=== PATIENT | female | born 2005 | race African-American/Black ===

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

== ENCOUNTER → 2025-02-06 | Outpatient (REF) | payer OTHER ==
[~2025-02-06] MED LIST changes: +PRENTAB9 PO
== END ==
LOC: M PLALAB 07:41
PROVIDERS: ATTEND Obstetrics & Gynecology
DX: O36.5990 Maternal care for other known or suspected poor fetal growth, unspecified trimester, not applicable or unspecified (principal); Z3A.00 Weeks of gestation of pregnancy not specified

== ENCOUNTER 2025-02-07 08:44 | Emergency (ER) | payer OTHER | END 2025-02-07 10:18 | disposition admitted as inpatient to this hospital (09) | LOC: M ED 08:44 | DX: Z53.21 Procedure and treatment not carried out due to patient leaving prior to being seen by health care provider (principal) ==

== ENCOUNTER 2025-02-07 08:52 | Outpatient (CLI) | payer OTHER ==
[~2025-02-07] VITALS: Ht 165.1 cm; Wt 89.3 kg
[2025-02-07 09:13] VITALS: BP 116/69
== END 2025-02-07 09:55 | disposition home or self-care (01) ==
LOC: M LDO 08:52
PROVIDERS: ATTEND Specialist
DX: O36.8130 Decreased fetal movements, third trimester, not applicable or unspecified (principal); O36.5930 Maternal care for other known or suspected poor fetal growth, third trimester, not applicable or unspecified; Z3A.30 30 weeks gestation of pregnancy
CPT/HCPCS: 59025; G0463

== ENCOUNTER → 2025-02-13 | Outpatient (CLI) | payer OTHER | LOC: M RAD 14:08 | PROVIDERS: ATTEND Specialist | DX: O36.5990 Maternal care for other known or suspected poor fetal growth, unspecified trimester, not applicable or unspecified (principal); Z3A.33 33 weeks gestation of pregnancy ==

== ENCOUNTER → 2025-03-03 | Outpatient (CLI) | payer OTHER | LOC: M WHC 12:37 | PROVIDERS: ATTEND Nurse Practitioner Family | DX: O36.5930 Maternal care for other known or suspected poor fetal growth, third trimester, not applicable or unspecified (principal); Z3A.33 33 weeks gestation of pregnancy | CPT/HCPCS: 59025; 76815; 76819; 76820; G0463 ==

== ENCOUNTER 2025-03-28 07:57 | Inpatient (IN) | payer OTHER ==
[2025-03-28] VITALS (8 sets, daily range): BP systolic 105–126; BP diastolic 58–78
[~2025-03-28] VITALS: Ht 165.1 cm; Wt 92.4 kg
[2025-03-28 10:11] LABS: PLATELET COUNT, AUTOMATED 234 10^3/uL (150-450)
[2025-03-28 11:38] LABS: HIV 1&2 SCREEN NEGATIVE (NEGATIVE)
[2025-03-28 11:46] LABS: HEPATITIS C VIRUS ABY INDEX 0.03 INDEX (<0.8)
[2025-03-28 11:55] LABS: LDH LACTATE DEHYDROGENASE 179 U/L (120-246)
[2025-03-28 11:56] LABS: ALT/SGPT 17 U/L (7.0-40); AST/SGOT 23 U/L (<34); CREATININE FOR GFR 0.65 MG/DL (0.55-1.30); GLOMERULAR FILTRATION RATE > 90.0 (>60)
[2025-03-28] MEDS: miSOPROStol 50 MCG 1/2 TABLET PO PRN (13:01)
[2025-03-29] VITALS (10 sets, daily range): BP systolic 105–130; BP diastolic 52–86
[2025-03-30] VITALS (29 sets, daily range): BP systolic 105–147; BP diastolic 60–97
[2025-03-30] MEDS: LR 1,000 ML IV SCH (04:46)
[2025-03-30] MEDS: OXYTOCIN DRIP 30 UNITS in IV 1 EA IV SCH (04:47)
[2025-03-30] MEDS ORDERED: EPIDURAL/PCA KEYS XX PRN (10:50)
[2025-03-30] MEDS ORDERED: diphenhydrAMINE 50 MG/ML VIAL IV PRN (10:50)
[2025-03-30] MEDS ORDERED: LR 500 ML IV PRN (10:50)
[2025-03-30] MEDS ORDERED: NALOXONE INJ 0.4MG/1ML VIAL IV PRN (10:50)
[2025-03-30] MEDS ORDERED: FENTANYL 2 MCG/ML ROPIVACAINE 0.2% IN 0.9% NACL 100 ML IVBAG As Ordered ONE (10:56)
[2025-03-30] MEDS: FENTANYL/ROPIVACAINE/NACL BAG 100 ML EPIDURAL SCH (11:35)
[2025-03-30] MEDS: ONDANSETRON 4MG 2ML VIAL IV PRN (20:07)
[2025-03-30] MEDS ORDERED: IBUPROFEN 600 MG TAB PO PRN (20:10)
[2025-03-30] MEDS ORDERED: ANUSOL HC CREAM 30 GM TOP PRN (20:10)
[2025-03-30] MEDS ORDERED: MOM 30 ML SUSPENSION UDC PO PRN (20:10)
[2025-03-30] MEDS ORDERED: DOCUSATE SODIUM 100 MG CAPSULE PO PRN (20:10)
[2025-03-30] MEDS ORDERED: ACETAMINOPHEN 325 MG TAB PO PRN (20:10)
[2025-03-30] MEDS: METHYLERGONOVINE MALEATE 0.2 MG/ML 1 ML VIAL IM PRN (20:39)
[2025-03-30] MEDS: IBUPROFEN 800 MG TAB PO PRN (21:55)
[2025-03-31] MEDS: DIBUCAINE 1% OINTMENT 30 GM TOP PRN (03:35)
[2025-03-31 06:00] VITALS: BP 134/68; O2SAT 98
[2025-03-31] MEDS: RHOGAM 300MCG (1500IU) INJ IM SCH (07:23)
[2025-03-31] MEDS: PRENATAL VITAMINS CHEWABLE TABLET PO SCH (08:06)
[2025-03-31 18:27] VITALS: BP 113/70; O2SAT 99
[2025-04-01 05:51] VITALS: BP 130/79; O2SAT 98
[2025-04-01] MEDS: MEASLES,MUMPS,RUBELLA VACCINE INJ (MMR-II) SC.IMMUN ONE (06:47)
[2025-04-01] MEDS: ACETAMINOPHEN 500 MG TAB PO PRN (08:08)
[2025-04-01 08:16] VITALS: BP 130/79; TEMP 98.2; O2SAT 98
== END 2025-04-01 12:45 | disposition home or self-care (01) | DRG 807 ==
LOC: M LDI 07:57 → M OBS 03-30 22:00
PROVIDERS: ADMIT Obstetrics & Gynecology; ATTEND Obstetrics & Gynecology
PROC: 3E033VJ Introduction of Other Hormone into Peripheral Vein, Percutaneous Approach (ICD-10-PCS; 2025-03-28)
PROC: 3E0P7GC Introduction of Other Therapeutic Substance into Female Reproductive, Via Natural or Artificial Opening (ICD-10-PCS; 2025-03-28)
PROC: 10E0XZZ Delivery of Products of Conception, External Approach (ICD-10-PCS; principal; 2025-03-30)
PROC: 0HQ9XZZ Repair Perineum Skin, External Approach (ICD-10-PCS; 2025-03-30)
DX: O36.5990 Maternal care for other known or suspected poor fetal growth, unspecified trimester, not applicable or unspecified (principal); Z37.0 Single live birth; Z3A.37 37 weeks gestation of pregnancy; O69.82X0 Labor and delivery complicated by other cord entanglement, without compression, not applicable or unspecified; O70.0 First degree perineal laceration during delivery

== ENCOUNTER 2025-08-16 10:36 | Emergency (ER) | payer OTHER ==
[~2025-08-16] VITALS: Ht 165.1 cm; Wt 84.3 kg
[2025-08-16] MEDS ORDERED: ACYC1CAP20 PO (12:26)
[2025-08-16 12:28] VITALS: BP 117/80; TEMP 98.9; O2SAT 99
[2025-08-16 12:31] LABS: Trichomonas vaginalis (AMP) NOT DETECTED (NEGATIVE)
[2025-08-16 12:54] LABS: GC DNA AMPLIFICATION NEGATIVE (NEGATIVE)
== END 2025-08-16 12:30 | disposition home or self-care (01) ==
LOC: M ED 10:36
DX: K13.70 Unspecified lesions of oral mucosa (principal); Z88.2 Allergy status to sulfonamides; Z88.8 Allergy status to other drugs, medicaments and biological substances; Z11.3 Encounter for screening for infections with a predominantly sexual mode of transmission

== ENCOUNTER → 2025-08-23 | Outpatient (CLI) | payer OTHER ==
[~2025-08-23] MED LIST changes: +ACYC1CAP20 PO
[2025-08-23 12:10] LABS: HIV 1&2 SCREEN NEGATIVE (NEGATIVE)
== END ==
LOC: M LAB 10:54
PROVIDERS: ATTEND Emergency Medicine
DX: Z11.4 Encounter for screening for human immunodeficiency virus [HIV] (principal)